=== PATIENT | female | born 1935 | race Caucasian/White ===

== ENCOUNTER → 2016-12-19 | Outpatient (CLI) | payer OTHER ==
[~2016-12-19] MED LIST: ALDACTONE25 MG PO; ASA5UEC PO; ASPIRIN325 PO; DUONEB 2.5-0.5 M3 ML INH; ENTOCORT EC 3 MG3 M1 PO; ENTOCORT EC3 MG PO; FLAGYL 250 MG250 MG PO; HYDROCODONE-AP1 EAC6 PO; LASIX 40 MG TAB40 M2 PO; LOPRESSOR25 PO; LOVASTAT20 PO; LOVASTAT40 PO; MULTIVITAMINS PO; ONDANSETRON HCL4 M2 PO; POTASSIUM20 PO; PREDNISONE 10 M10 MG; QUINAPRIL 20 MG20 MG PO; QUINU10 PD PO; ROBITUSSIN DM118 ML PO; TESSALON PERLE100 MG PO; TOPROL XL25 MG PO; TUMS E.S.750 MG PO; TYLENOL325 MG PO; VANCOMYCIN100 MG/M1 PO; multivitamin PO
== END ==
LOC: RAD 15:17
DX: Z12.31 Encounter for screening mammogram for malignant neoplasm of breast (principal)

== ENCOUNTER → 2018-02-05 | Outpatient (CLI) | payer OTHER | LOC: RAD 13:47 | DX: Z12.31 Encounter for screening mammogram for malignant neoplasm of breast (principal) ==

== ENCOUNTER → 2018-06-11 | Outpatient (CLI) | payer OTHER | LOC: NUC 14:51 | DX: M81.0 Age-related osteoporosis without current pathological fracture (principal); E28.39 Other primary ovarian failure; Z78.0 Asymptomatic menopausal state ==

== ENCOUNTER 2018-06-18 09:35 | Inpatient (IN) | payer OTHER ==
[~2018-06-18] VITALS: Ht 149.9 cm; Wt 41.5 kg
[~2018-06-18 09:35] MED LIST changes: -ALDACTONE25 MG PO; +SPIRONOLACTONE25 M1 PO
[2018-06-18 09:36] VITALS: BP 96/54
[2018-06-18] MEDS ORDERED: PULMICORT0.25 MG/3 INH (09:55)
[2018-06-18] MEDS ORDERED: CENTRUM SILVER1 EAC4 PO (09:55)
[2018-06-18] MEDS ORDERED: ZANTAC 150MG T150 MG PO (09:55)
[2018-06-18] MEDS ORDERED: SYNTHROID100 MC1 PO (09:56)
[2018-06-18] MEDS ORDERED: TUMS PO (09:56)
[2018-06-18 10:01] LABS: HEMATOCRIT 30.9 % (37.0-47.0); HEMOGLOBIN 10.4 gm/dL (12.0-15.0); MCH 32.6 pg (26.0-34.0); MCHC 33.7 g/dL (28.0-37.0); MCV 96.7 fL (80.0-100.0); PLATELET COUNT 187 thou/uL (150-400); RDW 14.5 % (10.5-14.5); WBC 27.1 thou/uL (4.0-11.0)
[2018-06-18 10:08] LABS: ANION GAP 9 mmol/L (7-16); BUN 28 mg/dL (7-18); CALCIUM 9.1 mg/dL (8.5-10.1); CHLORIDE 96 mmol/L (98-107); CO2 26 mmol/L (21-32); CREATININE 1.8 mg/dL (0.6-1.0); GLUCOSE 132 mg/dL (74-106); POTASSIUM 4.4 mmol/L (3.5-5.1); SODIUM 131 mmol/L (136-145)
[2018-06-18 10:16] LABS: TROPONIN-I <0.06 ng/mL (<0.06)
[2018-06-18 10:37] LABS: ABSOLUTE NEUTROPHILS 24.4 thou/uL (1.4-8.2)
[2018-06-18 10:42] LABS: ANISOCYTOSIS 1+; POLYCHROMASIA OCCASIONAL
[2018-06-18 12:13] LABS: URINE BILIRUBIN NEGATIVE (Negative); URINE BLOOD TRACE (Negative); URINE CLARITY CLEAR; URINE COLOR YELLOW; URINE GLUCOSE-RANDOM* NEGATIVE (Negative); URINE KETONES TRACE (Negative); URINE LEUKOCYTES-REFLEX 1+ (Negative); URINE NITRITE-REFLEX NEGATIVE (Negative); URINE PROTEIN (DIPSTICK) 1+ (Negative); URINE UROBILINOGEN 0.2 E.U./dl (0.2-1.0)
[2018-06-18 12:50] LABS: HYALINE CASTS 0-3 Few /LPF (None Seen)
[2018-06-18 12:51] LABS: SQUAMOUS 0-3 Few /LPF (0-3)
[2018-06-18 12:52] LABS: CRYSTALS None Seen /LPF (None Seen); URINE RBC None Seen /HPF (0-2); URINE WBC-REFLEX 6-15 Few /HPF (0-5)
[2018-06-18 12:53] LABS: BACTERIA-REFLEX >30 Many /HPF (None Seen)
[2018-06-18] MEDS ORDERED: ASPIR 8181 MG PO (13:22)
[2018-06-18] MEDS ORDERED: BUDESONIDE EC3 MG PO (13:26)
[2018-06-18] MEDS ORDERED: LEVOXYL50 MCG PO (13:27)
[2018-06-18 13:45] VITALS: BP 102/43
[2018-06-18 13:54] LABS: ALBUMIN 3.9 g/dL (3.4-5.0); TOTAL PROTEIN 7.4 g/dL (6.4-8.2)
[2018-06-18 14:20] LABS: TSH 0.401 uIU/mL (0.358-3.740)
--- NOTE | 2018-06-18 17:12 | EKG ---
[place] [address] [facility] 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: : 1935 Requested By: Roel Guillen Order Number: [id number] MD: Shaan Franco Measurements Intervals [place] Rate: 78 P: 80 [place]: 141 QRS: -11 QRSD: 88 T: 59 QT: 380 QTc: 433 Interpretive Statements Sinus rhythm Abnormal R-wave progression, early transition Compared to ECG 08/28/2014 12:19:08 Early R-wave progression is now present nonspecific change in the T wave abnormality Electronically Signed On 06-18-2018 17:12:14 CDT by Shaan Franco [email or web address] ��������������������������������������������� <ELECTRONICALLY SIGNED> ���������������������������������������� By: Shaan Franco MD, [facility] ��������������������������������������������� 06/18/18 1712 0948 0948 Shaan Franco MD, [facility] /EPI
[2018-06-18 17:53] VITALS: BP 112/47
[2018-06-18 18:39] VITALS: BP 102/48
[2018-06-18 20:00] VITALS: BP 104/53
[2018-06-19 02:52] VITALS: BP 94/52
--- NOTE | 2018-06-19 05:31 | NUR ---
PT RESTED GOOD AFTER TYLENOL WAS GIVEN, C/O UPPER CHEST DISCOMFORT FROM COUGH, ALERT/ORIENTED X4, ENC. COUGH, ON ROOM AIR, CONTINUE TO RECEIVE BREATHING TREATMENT, FLUIDS OFFERED WITH EACH ROUND, TOLERATING ORAL INTAKE, URINE STILL CONCENTRATED, VOIDED PER BSC, MINIMAL ASSIST OF 1, SCDS TO BLE, CTA ABDOMEN WAS DONE LAST NOC, NO RESULTS YET, HOURLY ROUNDING, NO BM PASSED, STILL ON SPECIAL CONTACT ISOLATION, MONITORED.
[2018-06-19 06:41] LABS: HEMATOCRIT 25.9 % (37.0-47.0); HEMOGLOBIN 8.6 gm/dL (12.0-15.0); MCH 32.7 pg (26.0-34.0); MCHC 33.2 g/dL (28.0-37.0); MCV 98.6 fL (80.0-100.0); RBC 2.62 mil/uL (4.20-5.00); WBC 17.5 thou/uL (4.0-11.0)
[2018-06-19 06:56] LABS: CREATININE 1.6 mg/dL (0.6-1.0); MAGNESIUM 2.1 mg/dL (1.8-2.4); POTASSIUM 4.2 mmol/L (3.5-5.1)
[2018-06-19 08:09] VITALS: BP 104/55
--- NOTE | 2018-06-19 14:24 | NUR ---
PT ADMITTED RELATED TO PYELONEPHRISIS, LEUKOCYTOSIS. CM REVIEWED CHART AND SPOKE WITH CARE TEAM. CM MET WITH PT AT BEDSIDE THIS DAY. PT IS A&O X4. CM ROLE INTRODUCED. PT INDICATED SHE LIVES IN A 4 BEDROOM APARTMENT WITH HER SON, DTR IN LAW, AND GRANDDAUGHTER. 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 PT INDICATED NO DME OR HH HX. PT INDICATED SHE PLANS TO RETURN HOME ONCE MEDICALLY STABLE. CM TO FOLLOW INDICATED WITH DC PLANNING.
[2018-06-19 14:39] VITALS: BP 96/55
--- NOTE | 2018-06-19 17:27 | NUR ---
PT A&OX4, VSS, NO C/O PAIN. PT STARTED ON IV ABX. PT HAS CHRONIC COUGH AND HAS COUGH MEDICATION. FALL PRECAUTIONS IN PLACE. PT TOLERATING DIET WITHOUT ISSUE. NO RIGHT SIDED PAIN OR PRESSURE TODAY, PT HAS NO C/O SOA AND NO SIGNS OF DISTRESS. WILL CONTINUE TO MONITOR.
[2018-06-19 18:18] VITALS: BP 118/57
[2018-06-19 20:10] VITALS: BP 119/60
[2018-06-20 04:23] VITALS: BP 98/52
[2018-06-20 06:01] LABS: HEMATOCRIT 24.4 % (37.0-47.0); HEMOGLOBIN 8.1 gm/dL (12.0-15.0); MCH 32.4 pg (26.0-34.0); MCHC 33.1 g/dL (28.0-37.0); RBC 2.49 mil/uL (4.20-5.00); RDW 15.2 % (10.5-14.5)
[2018-06-20 06:08] LABS: CALCIUM 7.9 mg/dL (8.5-10.1); CREATININE 1.1 mg/dL (0.6-1.0); MAGNESIUM 1.9 mg/dL (1.8-2.4); POTASSIUM 3.7 mmol/L (3.5-5.1)
[2018-06-20 07:26] VITALS: BP 108/66
[2018-06-20 20:30] VITALS: BP 106/50
[2018-06-21 03:26] VITALS: BP 117/49
[2018-06-21 04:57] LABS: HEMATOCRIT 22.8 % (37.0-47.0); HEMOGLOBIN 7.7 gm/dL (12.0-15.0); MCH 32.6 pg (26.0-34.0); MCHC 33.7 g/dL (28.0-37.0); MCV 96.9 fL (80.0-100.0); RBC 2.35 mil/uL (4.20-5.00); RDW 15.2 % (10.5-14.5); WBC 12.8 thou/uL (4.0-11.0)
[2018-06-21 05:09] LABS: CALCIUM 7.6 mg/dL (8.5-10.1); CREATININE 0.9 mg/dL (0.6-1.0); MAGNESIUM 1.8 mg/dL (1.8-2.4); POTASSIUM 3.8 mmol/L (3.5-5.1)
--- NOTE | 2018-06-21 07:07 | NUR ---
Assumed care at 1845. Pt resting in bed. Still having an unproductive cough. On 2L NC. She was hypoxic and tachy while walking to the bathroom. A0X4. VSS. No identified needs at the moment. Will continue to monitor.
[2018-06-21 07:40] VITALS: BP 113/57
--- NOTE | 2018-06-21 14:52 | NUR ---
CARE TEAM INDICATED THAT PT WILL LIKELY BE MEDICALLY STABLE TO DISCHARGE HOME TOMORROW. CM SENT REFERRAL TO [facility] AND THEY ARE ABLE TO ACCEPT PT FOR HOME HEALTH PT, OT, AND NURSING UPON DC. NO OTHER CM INTERVETNION INDICATED AT THIS TIME.
[2018-06-21 14:54] VITALS: BP 113/57
[2018-06-21 15:05] VITALS: BP 113/57
[2018-06-21 15:45] VITALS: BP 124/58
--- NOTE | 2018-06-21 19:36 | NUR ---
ASSUMED CARE 0700. ALERT X4, DENIES PAIN. VSS. PT VOICED CONCERN OF DC HOME WITH HOME HEALTH AND NOT BEING ABLE TO ANSWER THE DOOR AND MAKE HER MEALS WHILE HER SON AND HIS ARE AT WORK. PT AND FAMILY WANT PT TO GO TO REHAB. FALL PRECAUTIONS IN PLACE. USES CALL LIGHT.
[2018-06-21 20:18] VITALS: BP 127/71
[2018-06-22 03:55] VITALS: BP 115/79
--- NOTE | 2018-06-22 04:51 | NUR ---
PATIENT AOX4 MAKES NEEDS KNOWN. PATIENT NEEDS MINIMAL ASSISTANCE WITH ADL, BED MOBILITY, TRANSFER AND TOILETING.PATIENT HAD SHORTNESS OF AIR, LUNGS HAD CRACKLES AND WHEEZING. CALLED OPTICAL MANAGER NEW ORDER TO D/C FLUIDS. PAIN CONTROLLED THIS SHIFT. PATIENT IS SHORT OF AIR WITH ACTIVITIES. FALL PRECAUTION IN PLACE. PATIENT IN BED ASLEEP AT THIS TIME BREATHING REGULAR AND UNLABOURED.
[2018-06-22 05:15] LABS: HEMATOCRIT 26.4 % (37.0-47.0); HEMOGLOBIN 8.8 gm/dL (12.0-15.0); MCH 32.6 pg (26.0-34.0); MCHC 33.2 g/dL (28.0-37.0); MCV 98.3 fL (80.0-100.0); RBC 2.68 mil/uL (4.20-5.00); RDW 15.4 % (10.5-14.5); WBC 9.9 thou/uL (4.0-11.0)
[2018-06-22 05:29] LABS: CALCIUM 8.2 mg/dL (8.5-10.1); CREATININE 0.9 mg/dL (0.6-1.0); POTASSIUM 3.5 mmol/L (3.5-5.1)
[2018-06-22 07:38] VITALS: BP 139/74
--- NOTE | 2018-06-22 17:24 | NUR ---
ASSUMED CARE 0700. DR CRAFT ROUNDED WHILE FAMILY WAS BEDSIDE AND DISCUSSED REHAB VERSES HOME HEALTH. NO PLANS TO DC HOME THIS WEEKEND. MIN ASSIST TO BATHROOM. FALL PRECAUTIONS IN PLACE. ABLE TO MAKE NEEDS KNOWN.
[2018-06-22 17:39] VITALS: BP 132/71
[2018-06-22 19:31] VITALS: BP 125/59
[2018-06-22 19:36] VITALS: BP 122/57
[2018-06-23 05:44] VITALS: BP 137/73
[2018-06-23 07:28] VITALS: BP 135/73
--- NOTE | 2018-06-23 07:43 | NUR ---
PATIENT SLEPT PART OF THE NIGHT. 2L O2 VIA NC CONTINUED. PATIENT AMULATES WELL WITH WALKER AND SB ASSIST. PATIENT NID NOT REPORT ANY PAIN. NO NEW SKIN ISSUS DURING THE SHIFT. PATIENT SAYS SHE FEELS "BETTER". PATIENT IS PROGRESSING TOWARDS DISCHARGE GOALS.
--- NOTE | 2018-06-23 11:37 | NUR ---
TOWARDS POC PT A/O X4, VSS, AFEBRILE, DENIES PAIN. SOA ON EXERTION, REMAINED ON 2L O2. NO CONCERNS VOICED AT THIS TIME, WILL CONTINUE TO MONITOR.
[2018-06-23 16:19] VITALS: BP 141/69
[2018-06-23 20:09] VITALS: BP 148/83
[2018-06-24 03:26] LABS: MCH 32.7 pg (26.0-34.0); MCHC 33.4 g/dL (28.0-37.0); MCV 97.9 fL (80.0-100.0); RBC 2.46 mil/uL (4.20-5.00); RDW 15.1 % (10.5-14.5); WBC 9.4 thou/uL (4.0-11.0)
[2018-06-24 03:38] VITALS: BP 135/78
[2018-06-24 03:42] LABS: CALCIUM 8.8 mg/dL (8.5-10.1); CREATININE 0.9 mg/dL (0.6-1.0); POTASSIUM 3.3 mmol/L (3.5-5.1)
--- NOTE | 2018-06-24 06:21 | NUR ---
PATIENT SLEPT PART OF THE NIGHT. AO X 4 AND CALLS APPROPIATELY NEEDED. FALL PRECAUTION IN PLACE. PATIENT STILL ON O2 2L NC. NO PAIN MEDS REQUESTED THIS SHIFT. PATIENT IS PROGRESSING TOWARDS DISCHARGE GOALS. POSSIBLE DISCHARGE TO REHAB/HOME THIS AM.
[2018-06-24 08:22] VITALS: BP 135/63
--- NOTE | 2018-06-24 10:44 | NUR ---
digital media planner faxed initial Skilled Referral to [facility],- patient likely to discharge today. Requested they please seek authorization. DP contacted Gwen at facility, they received and will seek auth. -Case Management to follow up. BOP fax [phone].
[2018-06-24] MEDS ORDERED: IPRAT-ALBUT 0.5-3 ML INH (15:18)
[2018-06-24] MEDS ORDERED: TYLENOL325 MG PO (15:19)
[2018-06-24] MEDS ORDERED: ASA5UEC PO (15:19)
[2018-06-24] MEDS ORDERED: MUCINEX600 MG PO (15:20)
[2018-06-24] MEDS ORDERED: PROBIOTIC1 EAC1 PO (15:21)
[2018-06-24] MEDS ORDERED: KEFLEX500 M1 PO (15:21)
--- NOTE | 2018-06-24 15:27 | NUR ---
INDICATED THAT SHE DIDN'T FEEL SAFE RETURNING HOME. CM SENT REFERRAL TO [facility] FOR REVIEW FOR POSSIBLE POST ACUTE CARE STAY. THEY ARE ABLE TO ACCEPT PT AND AUTH WAS RECIEVED THROUGH HER INSURANCE. PT IS TO DISCHARGE TO [facility] THIS AFTERNNON AT 1630 VIA WC VAN 2L O2. CHART COPY ORDERED. ORDERS TO BE FAXED ONCE COMPLETED. REPORT TO BE CALLED TO . PT AND DTR ARE AWARE AND AGREEABLE. NO OTHER CM INTERVENTION INDICATED AT THIS TIME. CASE CLOSED.
[2018-06-24] MEDS ORDERED: TESSALON PERLE100 MG PO (15:29)
[2018-06-24 15:49] VITALS: BP 135/63
--- NOTE | 2018-06-24 18:29 | NUR ---
PT STABLE THROUGHOUT SHIFT. PT DISCHARGED TO [facility]. REPORT CALLED TO AYSE. PT LEFT VIA WHEELCHAIR VAN.
== END 2018-06-24 18:31 | DRG 871 ==
LOC: ER 09:35 → 4W 13:03 → EROBS 13:03 → 4W 17:50
PROVIDERS: Emergency Medicine; Hospitalist; ADMIT Internal Medicine
DX: A41.9 Sepsis, unspecified organism (principal); E43 Unspecified severe protein-calorie malnutrition; N17.9 Acute kidney failure, unspecified; J44.1 Chronic obstructive pulmonary disease with (acute) exacerbation; N12 Tubulo-interstitial nephritis, not specified as acute or chronic; E87.1 Hypo-osmolality and hyponatremia; J44.0 Chronic obstructive pulmonary disease with (acute) lower respiratory infection; Z68.1 Body mass index [BMI] 19.9 or less, adult; R19.7 Diarrhea, unspecified; E86.0 Dehydration; M81.0 Age-related osteoporosis without current pathological fracture; M19.90 Unspecified osteoarthritis, unspecified site; E78.00 Pure hypercholesterolemia, unspecified; Z96.641 Presence of right artificial hip joint; J20.9 Acute bronchitis, unspecified; H91.90 Unspecified hearing loss, unspecified ear; M62.84 Sarcopenia; D64.9 Anemia, unspecified; B96.20 Unspecified Escherichia coli [E. coli] as the cause of diseases classified elsewhere; E87.6 Hypokalemia; I25.10 Atherosclerotic heart disease of native coronary artery without angina pectoris; E03.9 Hypothyroidism, unspecified; F41.0 Panic disorder [episodic paroxysmal anxiety]; F17.210 Nicotine dependence, cigarettes, uncomplicated; I25.2 Old myocardial infarction; Z95.5 Presence of coronary angioplasty implant and graft; Z90.710 Acquired absence of both cervix and uterus; Z90.722 Acquired absence of ovaries, bilateral; Z90.49 Acquired absence of other specified parts of digestive tract; Z79.82 Long term (current) use of aspirin; Z79.899 Other long term (current) drug therapy; Z88.8 Allergy status to other drugs, medicaments and biological substances; Z28.21 Immunization not carried out because of patient refusal
CPT/HCPCS: 10040; 10045

== ENCOUNTER → 2020-02-18 | Outpatient (CLI) | payer OTHER ==
[~2020-02-18] MED LIST changes: +ASPIR 8181 MG PO; +BUDESONIDE EC3 MG PO; +CENTRUM SILVER1 EAC4 PO; +IPRAT-ALBUT 0.5-3 ML INH; +KEFLEX500 M1 PO; +LEVOXYL50 MCG PO; +MUCINEX600 MG PO; +PROBIOTIC1 EAC1 PO; +PULMICORT0.25 MG/3 INH; +SYNTHROID100 MC1 PO; +TUMS PO; +ZANTAC 150MG T150 MG PO
== END ==
LOC: SJCVCIMAG 09:07
PROVIDERS: ATTEND Internal Medicine Cardiovascular Disease
DX: I70.201 Unspecified atherosclerosis of native arteries of extremities, right leg (principal); I25.10 Atherosclerotic heart disease of native coronary artery without angina pectoris; I77.9 Disorder of arteries and arterioles, unspecified; I10 Essential (primary) hypertension; E78.00 Pure hypercholesterolemia, unspecified; J44.9 Chronic obstructive pulmonary disease, unspecified; R68.89 Other general symptoms and signs; Z72.0 Tobacco use; Z79.82 Long term (current) use of aspirin; Z79.899 Other long term (current) drug therapy

== ENCOUNTER → 2020-05-07 | Outpatient (CLI) | payer OTHER ==
[~2020-05-07] VITALS: Ht 152.4 cm; Wt 47.6 kg
[~2020-05-07] MED LIST changes: +ASA81BEC PO; +CALCIUM500 MG PO; +OMEPRAZOLE 20 M20 M1 PO
[2020-05-07 11:18] VITALS: BP 139/68
[2020-05-07 11:37] LABS: HEMATOCRIT 35.6 % (37.0-47.0); HEMOGLOBIN 11.9 gm/dL (12.0-15.0); MCHC 33.3 g/dL (28.0-37.0); RBC 3.6 mil/uL (4.20-5.00); RDW 14.7 % (10.5-14.5); WBC 13.4 thou/uL (4.0-11.0)
== END ==
LOC: MRI 05-05 11:33 → CATH 09:15
PROVIDERS: ATTEND Nuclear Medicine Nuclear Cardiology
DX: M80.08XA Age-related osteoporosis with current pathological fracture, vertebra(e), initial encounter for fracture (principal); M51.37 Other intervertebral disc degeneration, lumbosacral region; M19.90 Unspecified osteoarthritis, unspecified site; E78.00 Pure hypercholesterolemia, unspecified; F41.0 Panic disorder [episodic paroxysmal anxiety]; I25.10 Atherosclerotic heart disease of native coronary artery without angina pectoris; J44.9 Chronic obstructive pulmonary disease, unspecified; F17.210 Nicotine dependence, cigarettes, uncomplicated; D64.9 Anemia, unspecified; E03.9 Hypothyroidism, unspecified; Z95.5 Presence of coronary angioplasty implant and graft; Z90.710 Acquired absence of both cervix and uterus; Z90.49 Acquired absence of other specified parts of digestive tract; F32.9 Major depressive disorder, single episode, unspecified; Z91.013 Allergy to seafood; Z91.018 Allergy to other foods; I10 Essential (primary) hypertension; I73.9 Peripheral vascular disease, unspecified; M54.5 Low back pain

== ENCOUNTER 2020-05-12 10:47 | Observation (INO) | payer OTHER ==
[~2020-05-12] VITALS: Ht 152.4 cm; Wt 47.3 kg
[~2020-05-12 10:47] MED LIST changes: -ASA81BEC PO; -CALCIUM500 MG PO; -HYDROCODON-ACE1 EAC7 PO; -OMEPRAZOLE 20 M20 M1 PO
[2020-05-12 10:54] VITALS: BP 129/72
[2020-05-12 12:07] LABS: ABSOLUTE NEUTROPHILS 10.1 thou/uL (1.4-8.2); BASOPHILS 0.3 % (0.0-2.0); EOSINOPHILS 0.4 % (0.0-3.0); HEMATOCRIT 32.9 % (37.0-47.0); HEMOGLOBIN 10.9 gm/dL (12.0-15.0); LYMPHOCYTES 5.7 % (24.0-44.0); MCH 33.1 pg (26.0-34.0); MCV 100.2 fL (80.0-100.0); MONOCYTES 7.3 % (1.0-8.0); PLATELET COUNT 226 thou/uL (150-400); POLYS 86.3 % (36.0-66.0); RBC 3.28 mil/uL (4.20-5.00); RDW 15.5 % (10.5-14.5); WBC 11.7 thou/uL (4.0-11.0)
[2020-05-12 12:14] LABS: CALCIUM 9.2 mg/dL (8.5-10.1); CREATININE 1.2 mg/dL (0.6-1.0); POTASSIUM 3.8 mmol/L (3.5-5.1)
[2020-05-12 12:20] LABS: ALBUMIN 3.6 g/dL (3.4-5.0); TOTAL BILIRUBIN 0.6 mg/dL (0.2-1.0); TOTAL PROTEIN 7.6 g/dL (6.4-8.2)
[2020-05-12] MEDS ORDERED: ASA81BEC PO (12:45)
[2020-05-12] MEDS ORDERED: CALCIUM500 MG PO (12:51)
[2020-05-12] MEDS ORDERED: OMEPRAZOLE 20 M20 M1 PO (12:51)
[2020-05-12 13:05] LABS: URINE BILIRUBIN NEGATIVE (Negative); URINE BLOOD NEGATIVE (Negative); URINE CLARITY CLEAR; URINE COLOR YELLOW; URINE GLUCOSE-RANDOM* NEGATIVE (Negative); URINE KETONES NEGATIVE (Negative); URINE LEUKOCYTES-REFLEX NEGATIVE (Negative); URINE NITRITE-REFLEX NEGATIVE (Negative); URINE PROTEIN (DIPSTICK) NEGATIVE (Negative); URINE UROBILINOGEN 0.2 E.U./dl (0.2-1.0)
[2020-05-12 16:49] LABS: PROTIME 10.6 Seconds (9.3-11.4)
[2020-05-12 18:08] LABS: HEMATOCRIT 33.7 % (37.0-47.0); MCH 32.6 pg (26.0-34.0); MCHC 32.6 g/dL (28.0-37.0); MCV 100.1 fL (80.0-100.0); RBC 3.37 mil/uL (4.20-5.00); RDW 15.4 % (10.5-14.5); WBC 12.6 thou/uL (4.0-11.0)
[2020-05-12 20:29] VITALS: BP 138/60
[2020-05-12 20:57] VITALS: BP 138/60
[2020-05-12 21:00] VITALS: BP 149/79
[2020-05-13 04:05] VITALS: BP 114/66
[2020-05-13 07:10] VITALS: BP 125/76
--- NOTE | 2020-05-13 08:04 | NUR ---
PT IS A&OX4. PT IS HERE DUE TO BACK PAIN AFTER A KYPHOPLASTY ON 05/07/20. . PT IS ABLE TO MAKE HER NEEDS KNOWN. LOOKING INTO REHAB PLACEMENT TO FIX ISSUE. PT'S O2 DESATS WHEN SHE SLEEPS. PT MAY HAVE A MRI THIS MORNING. WILL CONTINUE TO MONITOR. GAVE REPORT TO DAY NURSE.
--- NOTE | 2020-05-13 10:12 | NUR ---
ASSESSMENT: CM REVIEWED CHART AND SPOKE WITH PATIENT. PT WAS ADMITTED DUE TO HAVING PAIN/LUMBAR RADICULOPATHY. PT HAD A KYPHOPLASTY ABOUT 5 DAYS AGO AND REPORTS PAIN SINCE. PT [facility] WITH HER SON, DAUGHTER IN LAW, AND GRANDDAUGHTER. SHE REPORTS SHE HAS ABOUT 14 STEPS TO GET TO HER BEDROOM. PT STATES STARTING MAY 24, THEY ARE MOVING TO A DIFFERENT APT. PT HAS BEEN TO [facility] IN THE PAST. PT IS TO WORK WITH THERAPIES. PT STATING IF SHE IS NEEDING POST ACUTE CARE SHE WISHES TO GO TO [facility]. CM WILL CONTINUE TO FOLLOW AND AWAIT THERAPY RECOMMENDATIONS.
--- NOTE | 2020-05-13 12:20 | NUR ---
ASSUMED PT CARE THIS AM. PT VSS, A&OX4. PT PLEASANT, MAKES NEEDS KNOWN. IV PATENT, SALINE LOCKED. PT HARD OF HEARING. PT CONTINENT, USING THE BEDSIDE COMMODE AND BEDPAN S NEEDED. ON 2L O2 NC. COMPLAINTS OF PAIN WITH MOVEMENT, BUT WITH MINIMAL PAIN AT BASELINE. FALL PRECAUTIONS IN PLACE.
--- NOTE | 2020-05-13 13:16 | NUR ---
ON-GOING ASSESSMENT: PT/OT EVALS ARE PENDING BUT PT WILL LIKELY NEED POST ACUTE. PT IS OPEN TO 5N AND CONSULT IS PLACED AND PENDING. PT ALSO INTERESTED IN GOING TO [facility] SHE HAS BEEN THERE IN THE PAST. CM NOTIFIED BEDSIDE RN THAT A COVID TEST NEEDS TO BE COMPLETED. AWAITING 5N EVAL WELL PT/OT RECOMMENDATIONS AT THIS TIME. CM UPDATED PTS SON.
[2020-05-13 16:00] VITALS: BP 157/82
[2020-05-13 19:42] VITALS: BP 127/61
[2020-05-14 04:24] VITALS: BP 145/79
--- NOTE | 2020-05-14 07:23 | NUR ---
ASSUMED CARE OF PATIENT SHE IS RESTING COMFORTABLY IN BED. NO PAIN OR RESP DISTRESS.
--- NOTE | 2020-05-14 07:27 | NUR ---
ASSUMED PT CARE AT 1900.PT C/O PAIN ON HER BACK,MANAGED WITH MED.PT VERY [place].PT ON 0.5L/NC.PT ABLE TO MAKE HER NEEDS KNOWN.CALL LIGHT WITHIN REACH.REPORT TO AM NURSE.
[2020-05-14 08:01] VITALS: BP 140/77
--- NOTE | 2020-05-14 09:42 | NUR ---
ON-GOING ASSESSMENT: EMILY REVIEWED CHART AND SPOKE WITH ATTENDING. EMILY ENT UPDATED CLINICAL TO [facility] THIS AM AND ASKED THAT THEY REQUEST AUTH IF THEY HAVE NO ALREADY. CM ALSO FAXED NEGATIVE COVID TEST. EMILY SPOKE WITH PTS DAUGHTER IN LAW OLGA TO UPDATE. AWAITING INSURANCE AUTH FOR SNF AT THIS TIME.
[2020-05-14] MEDS ORDERED: HYDROCODON-ACE1 EAC7 PO (10:43)
--- NOTE | 2020-05-14 12:54 | NUR ---
ON-GOING ASSESSMENT: CM REVIEWED CHART AND SPOKE WITH ATTENDING. PT HAS ORDERS TO DISCHARGE TO SNF TODAY. CM NOTIFIED LIASON AT [facility] AND LATER RECEIVED A CALL THAT THEY HAVE INSURANCE AUTH AND CAN ACCEPT HER TODAY. CM FAXED D/C ORDERS AND SUMMARY TO [facility] AND THEY CONFIRMED THEY RECEIVED IT. CM ALSO FAXED NEGATIVE COVID RESULT. CM NOTIFIED PT AND HER DAUGHTER IN LAW OLGA WHO IS Agreeable WITH PLAN. CHART COPY ORDERED. BEDSIDE RN HAS THE CONTACT NUMBER FOR REPORT. PT REPORTS NO FURTHER QUETIONS FROM CM AT THIS TIME.
[2020-05-14 14:35] VITALS: BP 123/78
--- NOTE | 2020-05-14 16:19 | NUR ---
PATIENT DISCHARGED AT 1410. W/C VAN HERE TO TRANSPORT PATIENT SHE TOOK 1 SET OF CLOTHES SHE WAS WEARING AND HER GLASSES. PAPERWORK SENT WITH PATIENT. PT W/O PAIN OR RESP DISTRESS AT DISCHARGE.
== END 2020-05-14 16:49 ==
LOC: ER 10:47 → EROBS 14:09 → 4S 14:09
PROVIDERS: Nurse Practitioner Family; ADMIT Hospitalist; ATTEND Hospitalist
DX: M40.205 Unspecified kyphosis, thoracolumbar region (principal); K21.9 Gastro-esophageal reflux disease without esophagitis; I10 Essential (primary) hypertension; F32.9 Major depressive disorder, single episode, unspecified; J44.9 Chronic obstructive pulmonary disease, unspecified; M81.0 Age-related osteoporosis without current pathological fracture; I25.10 Atherosclerotic heart disease of native coronary artery without angina pectoris; E78.00 Pure hypercholesterolemia, unspecified; F41.0 Panic disorder [episodic paroxysmal anxiety]; E03.9 Hypothyroidism, unspecified; I73.9 Peripheral vascular disease, unspecified; N17.9 Acute kidney failure, unspecified; D72.829 Elevated white blood cell count, unspecified; H91.90 Unspecified hearing loss, unspecified ear; K59.00 Constipation, unspecified; R53.81 Other malaise; R62.7 Adult failure to thrive; Z20.822 Contact with and (suspected) exposure to COVID-19; Z98.890 Other specified postprocedural states; Z90.49 Acquired absence of other specified parts of digestive tract; Z90.710 Acquired absence of both cervix and uterus; Z95.5 Presence of coronary angioplasty implant and graft

== ENCOUNTER → 2020-05-12 | Outpatient (CLI) | payer OTHER ==
[~2020-05-12] MED LIST changes: +HYDROCODON-ACE1 EAC7 PO
== END ==
LOC: CATH 06:27 → RAD 08:24 → CATH 08:24
PROVIDERS: ATTEND Nuclear Medicine Nuclear Cardiology
DX: M47.816 Spondylosis without myelopathy or radiculopathy, lumbar region (principal); M54.5 Low back pain

== ENCOUNTER → 2020-10-15 | Outpatient (CLI) | payer OTHER ==
[~2020-10-15] MED LIST changes: +ASA81BEC PO; +CALCIUM500 MG PO; +HYDROCODON-ACE1 EAC7 PO; +OMEPRAZOLE 20 M20 M1 PO
== END ==
LOC: SJCVC 10:36
PROVIDERS: ATTEND Internal Medicine Cardiovascular Disease
DX: I25.10 Atherosclerotic heart disease of native coronary artery without angina pectoris (principal); I73.9 Peripheral vascular disease, unspecified; I77.9 Disorder of arteries and arterioles, unspecified; I10 Essential (primary) hypertension; E78.00 Pure hypercholesterolemia, unspecified; J44.9 Chronic obstructive pulmonary disease, unspecified; R06.00 Dyspnea, unspecified; F32.9 Major depressive disorder, single episode, unspecified; M81.0 Age-related osteoporosis without current pathological fracture; Z79.82 Long term (current) use of aspirin; Z79.899 Other long term (current) drug therapy; Z87.891 Personal history of nicotine dependence

== ENCOUNTER 2021-02-26 12:12 | Inpatient (IN) | payer OTHER ==
[~2021-02-26] VITALS: Ht 152.4 cm; Wt 52.6 kg
[2021-02-26 12:39] VITALS: BP 131/68
[2021-02-26 13:22] LABS: BASOPHILS 0.3 % (0.0-2.0); HEMATOCRIT 32.4 % (37.0-47.0); HEMOGLOBIN 10.6 gm/dL (12.0-15.0); LYMPHOCYTES 2.8 % (24.0-44.0); MCH 32.5 pg (26.0-34.0); MCHC 32.7 g/dL (28.0-37.0); MCV 99.3 fL (80.0-100.0); MONOCYTES 9.6 % (1.0-8.0); PLATELET COUNT 147 thou/uL (150-400); POLYS 87.3 % (36.0-66.0); RBC 3.26 mil/uL (4.20-5.00); RDW 15.4 % (10.5-14.5); WBC 14.9 thou/uL (4.0-11.0)
[2021-02-26 13:37] LABS: CALCIUM 8.6 mg/dL (8.5-10.1); CREATININE 1.9 mg/dL (0.6-1.0); POTASSIUM 4.5 mmol/L (3.5-5.1)
[2021-02-26 13:47] LABS: ALBUMIN 3.7 g/dL (3.4-5.0); TOTAL BILIRUBIN 0.8 mg/dL (0.2-1.0); TOTAL PROTEIN 7.4 g/dL (6.4-8.2)
[2021-02-26 16:26] VITALS: BP 139/59
[2021-02-26 17:29] VITALS: BP 117/92
--- NOTE | 2021-02-26 18:32 | NUR ---
[facility]. A/O X4. ON 4L/NC. COUGH, SOB WITH EXERTION. DEMIES PAIN. WILL KEEP MONITOR.
[2021-02-26 20:32] VITALS: BP 99/47
[2021-02-26 23:44] VITALS: BP 104/54
[2021-02-27 02:14] LABS: CALCIUM 7.3 mg/dL (8.5-10.1); CREATININE 1.8 mg/dL (0.6-1.0); POTASSIUM 4.5 mmol/L (3.5-5.1)
[2021-02-27 03:40] VITALS: BP 110/56
[2021-02-27 05:21] LABS: HEMATOCRIT 25.2 % (37.0-47.0); MCH 33.5 pg (26.0-34.0); MCV 101.6 fL (80.0-100.0); RBC 2.48 mil/uL (4.20-5.00); RDW 15.9 % (10.5-14.5)
[2021-02-27 05:32] LABS: HEMOGLOBIN 8.3 gm/dL (12.0-15.0)
[2021-02-27 07:34] VITALS: BP 111/56
--- NOTE | 2021-02-27 07:34 | NUR ---
Patient making slow progress towards outcome goals. Vital signs and rhythm stable. Lactic acid elevated, reported with orders for fluid bolus. Up to BSC x 1. High fall risks, fall precautions in place. Uses call light appropriately for needs. IVfluids infusing. Short of breath with activity, oxygen saturation optimal with 4L/NC. Loose cough, Flu swab negative. Very [place] despite hearing aids.
[2021-02-27 11:20] LABS: HEMATOCRIT 23.1 % (37.0-47.0); HEMOGLOBIN 7.5 gm/dL (12.0-15.0)
--- NOTE | 2021-02-27 12:03 | EKG ---
[address] [address] ELECTROCARDIOGRAM REPORT Name: MAITE ALVAREZ GORDY Room #: 360-P ADM IN M.R.#: [id number] Admission: 02/26/21 Attend Phys: Bradley Pisano MD Discharge: Date of : 34 Report #: [id number] [facility] ED Test Date: 2021-02-26 Test Time: 12:41:05 Pat Name: MAITE ALVAREZ Department: Room: 360 Gender: F Product Responsibility Liaison: RENEA : 1935 Requested By: Judy Whyte Order Number: [id number] MD: Bebo Onofre Measurements Intervals [place] Rate: 126 P: 81 CA: 159 QRS: -34 QRSD: 77 T: 47 QT: 294 QTc: 426 Interpretive Statements Sinus tachycardia Probable left atrial enlargement Left axis deviation Electronically Signed On 02-27-2021 12:03:32 FAMILY CASEWORKER by Bebo Onofre [email or web address] <ELECTRONICALLY SIGNED> By: Bebo Onofre MD 02/27/21 1203 1241 1241 Bebo Onofre MD /YADI
[2021-02-27 16:22] VITALS: BP 126/59
--- NOTE | 2021-02-27 18:10 | NUR ---
A/O X4. DESAT WITH COUGH. ON 4L/NC. UP WITH STAND BY ASSIST. VSS. SLOWLY TOWARDS POC GOALS.
[2021-02-27 19:42] VITALS: BP 129/71
[2021-02-27 20:13] LABS: % SATURATION 8 % (20-39); IRON 22 ug/dL (50-170); TIBC 291 ug/dL (250-450)
[2021-02-27 21:36] LABS: FOLIC ACID 60.2 ng/mL (8.6-58.9)
[2021-02-28 03:32] VITALS: BP 144/73
--- NOTE | 2021-02-28 05:54 | NUR ---
Patient making slow progress towards outcome goals.Oxygenation optimal with 4L/NC. Several coughing fits, productive thick yellow. Orders received for cough with some relief. Stress incontinence from coughing. High fall risks,fall precautions in place. Calls out appropriately for needs, [place] even with hearing aides on. IVfluids infusing. Tachycardic up to 140's with coughing fits, Afebrile. BP stable.
[2021-02-28 07:53] VITALS: BP 128/64
[2021-02-28 09:06] LABS: HEMOGLOBIN 7.9 gm/dL (12.0-15.0); MCH 33.2 pg (26.0-34.0); MCV 100.6 fL (80.0-100.0); RBC 2.38 mil/uL (4.20-5.00); WBC 14.2 thou/uL (4.0-11.0)
[2021-02-28 09:48] LABS: CALCIUM 7.6 mg/dL (8.5-10.1); CREATININE 1.5 mg/dL (0.6-1.0); POTASSIUM 3.9 mmol/L (3.5-5.1)
[2021-02-28 09:58] LABS: ABSOLUTE NEUTROPHILS 11.5 thou/uL (1.4-8.2); PLATELET COUNT 127 thou/uL (150-400); PLATELET ESTIMATE NORMAL
--- NOTE | 2021-02-28 14:55 | NUR ---
INITIAL ASSESSMENT: LEYLA reviewed chart and spoke with nursing and attending physician. Pt was admitted from home due to acute respiratory failure. Pt with hx of pneumonia and compression fractures. Pt is on IV abx/IV steroids. Pt is on 4L of O2. PT/OT evals completed today. LEYLA met with pt at bedside. Introduced role of SW. Pt is alert/orientated x 4. Pt is [place]. Pt states she lives at home with her son and dtr-in-law. Pt has a cane and walker to use as needed. Pt is not on home O2. Pt's PCP is Dr. Morelos. Pt states she has been to [facility] in the past. No hx of HH services. Pt asked SW to contact her dtr-in-law, Stu, to discuss discharge plan. LEYLA spoke with Stu via phone. Update provided. Stu states that pt and family are agreeable with referral to [facility], as pt prefers to do a short term rehab stay v. having HH come in to see her at home. LEYLA faxed SNF referral to [facility] for review. Notified [place] liaison of new referral. Will need insurance authorization. LEYLA is following to assist as needed with discharge planning.
--- NOTE | 2021-02-28 19:36 | NUR ---
PATIENT IS ALERT AND ORIENTED X3 THIS SHIFT. SHE IS HARD OF HEARING BUT IS AWARE OF HER LIMITATIONS. PATIENT HAS EXHILATORY WHEEZES. PATIENT IS MED- SURGE TELE AND HAS BEEN RUNNING SINUS TACH. PATIENT HAS BEEN INCONTINENT ONE TIME THIS SHIFT. PATIENT GETS UP WITH ONE ASSIST TO THE BEDSIDE COMMODE. SHE IS VERY WEAK AND SHAKY. PATIENTS LAST BM WAS 02/28/21. PATIENT HAS AN IV IN HER RIGHT A.C. THAT IS SALINE LOCKED AND IT IS PATENT. PATIENT WILL CONTINUE TO BE MONITORED.
[2021-02-28 20:07] VITALS: BP 151/74
[2021-03-01 04:51] VITALS: BP 138/63
[2021-03-01 07:31] VITALS: BP 131/67
--- NOTE | 2021-03-01 08:28 | NUR ---
Pt. requested for cough med and given to her. Scheduled sleep med also given. She stated she slept better last night with less coughing. Up with assist to commode. O2 at 4L/NC ,she does get short of breath with exertion. Making some progress towards care plan goals.
--- NOTE | 2021-03-01 15:41 | NUR ---
LEYLA reviewed chart anbd spoke with nursing and attending physician. Pt is progressing towards goals for discharge. Pulonology consulted yesterday. Pt is on 2L of O2, IV steroids and IV abx. Pt had COVID PCR test yesterday, which was negative. [facility] can accept pt pending insurance authorization. Discharge anticipated for /Sunday. LEYLA faxed clinical and therapy updates to [facility] for review. Notified [facility] liaison and requested facility to submit for insurance auth. LEYLA met with pt at bedside to provide update. Pt is agreeable with plan. Pt states she received the Moderna COVID vaccine. LEYLA spoke with pt's dtr-in-law, Stu, via phone to provide update and notify of [facility] acceptance and discharge timeframe. Stu is agreeable with plan. Family to bring pt's COVID vaccination card to the hospital. LEYLA is following to assist as needed with discharge planning.
[2021-03-01 16:20] VITALS: BP 123/60
--- NOTE | 2021-03-01 16:35 | NUR ---
PATIENT IS ALERT AND ORIENTED X3. SHE IS HARD OF HEARING. PAITNET HAS DIMINISHED BREATH SOUNDS. SHE IS ON 1L OF OXYGEN BUT WAS INCREASED TO TWO LITERS OF OXYGEN POST ACTIVITY WITH PHYSICAL ACTIVITY. PATIENT WAS DECREASED BACK TO ONE LITER OF OXYGEN. PATIENT IS MED/SURGE- TELE AND HAS BEEN SINUS RHYTHM THIS SHIFT. PAITNET HAS BEEN UP TO THE BED SIDE COMMODE WITH ONE ASSIST THIS SHIFT. PATIENT HAS HAD ONE EPISODE OF INCONTINENCE. PATIENT HAS A MEDIUM SIZED BM THIS SHIFT. PATIENT HAS NO SKIN ISSUES. PATIENT HAS AN IV IN HER RIGHT AC THAT IS CURRENTLY BEING UTILIZED TO RUN HER ANTIBIOTICS. PATIENT WILL CONTINUE TO BE MONITORED.
[2021-03-01 19:59] VITALS: BP 123/61
[2021-03-02 04:53] VITALS: BP 140/73
--- NOTE | 2021-03-02 05:00 | NUR ---
Slept well during the night. Cough medicine given x1. O2 at 1 L/NC and maintaining O2 sat > 90%. Up with assist to commode. Calls appropriately for assistance. Making some progress towards care plan goals.
[2021-03-02 07:41] VITALS: BP 139/69
--- NOTE | 2021-03-02 09:11 | 2DMMODE ---
[facility] [place] [address] 2 D/M-MODE ECHOCARDIOGRAM Name: MAITE ALVAREZ GORDY Room #: 360-P ADM IN M.R.#: [id number] Admission: 02/26/21 Attend Phys: Bradley Pisano MD Discharge: Date of : 34 Report #: [id number] THIS REPORT FOR: cc: Veto Morelos,Trevor Urrutia MD ~ APPROVED REPORT Study performed: 03/02/2021 07:33:16 EXAM: Comprehensive 2D, Doppler, and color-flow Echocardiogram Patient Location: Bedside Room #: 360 Status: routine BSA: 1.48 HR: 82 bpm BP: 140/73 mmHg Rhythm: NSR Other Information Study Quality: Good Indications Cough. Hx: CAD, PCI, COPD 2D Dimensions IVSd: 8.88 (7-11mm) LVOT Diam: 19.37 (18-24mm) LVDd: 46.17 mm PWd: 9.45 (7-11mm) Ascending Ao: 38.35 (22-36mm) LVDs: 31.05 (25-40mm) Left Atrium: 29.90 (27-40mm) Aortic Root: 33.72 mm Volumes Left Atrial Volume (Systole) Single Plane 4CH: 34.74 mL Single Plane 2CH: 35.85 mL LA ESV Index: 26.00 mL/m2 Aortic Valve AoV Peak Sina.: 1.30 m/s AO Peak Gr.: 6.79 mmHg LVOT Max P.90 mmHg LVOT Max V: 1.21 m/s ДМИТРИЙ Vmax: 2.75 cm2 [facility] [address] [place] [address] 2 D/M-MODE ECHOCARDIOGRAM Name: MAITE ALVAREZ GORDY Room #: 360-P [facility].#: [id number] Admission: 02/26/21 Attend Phys: Beverly Baig Discharge: Date of : 34 Report #: [id number] Mitral Valve E/A Ratio: 0.9 MV Decel. Time: 174.63 ms MV E Max Sina.: 0.95 m/s MV A Sina.: 1.06 m/s MV PHT: 50.64 ms IVRT: 83.04 ms Pulmonary Valve PV Peak Sina.: 0.77 m/s PV Peak Gr.: 2.40 mmHg Pulmonary Vein P Vein S: 0.74 m/s P Vein A: 0.35 m/s P Vein D: 0.43 m/s P Vein A Dur.: 100.3 msec P Vein S/D Ratio: 1.72 Tricuspid Valve TR Peak Sina.: 3.19 m/s RAP Estimate: 12.00 mmHg TR Peak Gr.: 40.83 mmHg PA Pressure: 52.00 mmHg Left Ventricle The left ventricle is normal size. Regional wall motion abnormalities are noted. There is normal left ventricular wall thickness. Left ventricular systolic function is normal. LVEF is 55%. Mild diastolic dysfunction is present (impaired relaxation pattern). Right Ventricle The right ventricle is normal size. The right ventricular systolic function is normal. Atria The left atrium size is normal. The right atrium size is normal. Aortic Valve The aortic valve is normal in structure. Trace aortic regurgitation. There is no aortic valvular stenosis. Mitral Valve The mitral valve is normal in structure. Mild to moderate mitral regurgitation. Tricuspid Valve The tricuspid valve is normal in structure. Mild to moderate [facility] [address] [place] [address] 2 D/M-MODE ECHOCARDIOGRAM Name: MAITE ALVAREZ GORDY Room #: 360-P [facility] .R.#: [id number] Admission: 02/26/21 Attend Phys: Beverly Baig Discharge: Date of : 34 Report #: [id number] tricuspid regurgitation. Estimated PAP is 50 mmHg. Pulmonic Valve The pulmonary valve is normal in structure. Mild pulmonic regurgitation. Great Vessels The aortic root is normal in size. The ascending aorta is borderline dilated (3.8cm). IVC is dilated and collapses <50% with inspiration. Pericardium There is no pericardial effusion. <Conclusion> The left ventricle is normal size. There is normal left ventricular wall thickness. Left ventricular systolic function is normal. Mild diastolic dysfunction is present (impaired relaxation pattern). The right ventricle is normal size. The left atrium size is normal. The aortic valve is normal in structure. Mild to moderate mitral regurgitation. Mild to moderate tricuspid regurgitation. Estimated PAP is 50 mmHg. <ELECTRONICALLY SIGNED> By: Trevor Rivers MD 03/02/21909 9 9 Trevor Rivers MD /INF
--- NOTE | 2021-03-02 16:28 | NUR ---
CM RECEIVED NOTICE FORM [facility] THAT INSURANCE HAS DENIED SKILLED REQUEST. DAUGHTER IN LAW OLGA NOTIFIED. PT DOWN TO 1L OXYGEN BUT HAD ROOM AIR SAT AT 83%. MAY NEED HOME O2. HH RECOMMENDED DUE TO SKILLED DENIAL. OLGA WILL BE COMING TO VISIT PT THIS EVENING IN WHICH THEY WILL DISCUSS IF PT IS AGREEABLE TO HH AND HOME OXYGEN. THEY ARE ALSO INTERESTED IN COST FOR RESPITE AT [facility]. KRISTI VACA CONTACTED AND SHE WILL CALL OLGA WITH COST.
[2021-03-02 16:52] VITALS: BP 167/69
--- NOTE | 2021-03-02 18:20 | NUR ---
PATIENT IS ALERT AND ORIENTED X4. SHE IS HARD OF HEARING. PATIENT IS AWARE OF HER LIMITATIONS. PATIENT IS ON 1L OF OXYGEN. EARLIER IN THE SHIFT PATIENT PUT ON ROOM AIR BUT HER OXYGEN SATURATION DESATED TO THE LOW 80'S. PATIENT WAS PLACED BACK ON 1L OF OXYGEN. PATIENT HAS BEEN CONTINENT OF BOTH BOWEL AND BLADDER THIS SHIFT. SHE GETS UP X1 ASSIST TO THE COMMODE WITH A GAITBELT AND WALKER. PATIENT HAS A SMALL BOWEL MOVEMENT THIS SHIFT. PATIENT HAS NO SKIN ISSUES. PAITENTS IV ON HER RIGHT AC CAME OUT WHEN SHE WAS BENDING HER ARM. IV WAS DISCONTINUED. PATIENT HAS A NEW IV STARTED ON HER RIGHT FOREARM THAT IS PATENT AND SALINE LOCKED. PATIENT WAS GIVEN COUGH MEDICINE X1 THIS SHIFT. PATIENT WILL CONTINUE TO BE MONITORED.
[2021-03-02 20:09] VITALS: BP 132/71
[2021-03-03 03:22] VITALS: BP 135/62
--- NOTE | 2021-03-03 04:56 | NUR ---
resting quietly, at this time. denies pain. calls approp for assist out of bed. no concerns voied. she does want to get home or moved onto snf. she was wondering if she will be done with the oxygen soon.
[2021-03-03 08:15] VITALS: BP 159/80
[2021-03-03 10:35] LABS: HEMATOCRIT 26.5 % (37.0-47.0); HEMOGLOBIN 8.5 gm/dL (12.0-15.0); MCH 32.2 pg (26.0-34.0); MCHC 32.1 g/dL (28.0-37.0); MCV 100.4 fL (80.0-100.0); RBC 2.64 mil/uL (4.20-5.00); RDW 15.2 % (10.5-14.5); WBC 11.3 thou/uL (4.0-11.0)
[2021-03-03 10:51] LABS: CALCIUM 8.4 mg/dL (8.5-10.1); CREATININE 1.7 mg/dL (0.6-1.0); POTASSIUM 3.2 mmol/L (3.5-5.1)
--- NOTE | 2021-03-03 12:37 | NUR ---
Call back rec'd from dtr in law Stu as well as cm visited with the pt at bedside. Insurance denial of snf stay discussed. Pt was supervision with PT this am. She is staying today for one unit of blood and adj of her heart medication d/t elev heart rate. She is not receptive to Hh or home o2. Those services were discussed at length with both the pt and her dtr in law. Pt reports her son is out of work right now and may be able to stay with her. She indicates she can not afford a respite stay at [facility] and she does not want private duty. Followup message left for Stu so pt/son/dtr in law can discuss how to manage their schedules and provide more supervision for pt or look at getting a security card for HH staff to be able to come in to the secured apt complex to see her. Support provided. Dc home in 1-2 days. HH and home o2 likely needed if pt is receptive.
--- NOTE | 2021-03-03 13:02 | EKG ---
[address] [address] ELECTROCARDIOGRAM REPORT Name: MAITE ALVAREZ GORDY Room #: 360-P ADM IN M.R.#: [id number] Admission: 02/26/21 Attend Phys: Bradley Pisano MD Discharge: Date of : 34 Report #: [id number] [facility] Test Date: 2021-03-03 Test Time: 09:51:16 Pat Name: MAITE ALVAREZ Department: Room: 360 P Gender: F Retreader: MIGUE : 1935 Requested By: Bradley Pisano Order Number: [id number] : Norman Doyle Measurements Intervals [place] Rate: 97 P: 64 AL: 128 QRS: -15 QRSD: 88 T: 69 QT: 344 QTc: 437 Interpretive Statements Sinus rhythm Inferior infarct, old Lateral leads are also involved Compared to ECG 02/26/2021 12:41:05 Myocardial infarct finding now present Sinus tachycardia no longer present Left-axis deviation no longer present Electronically Signed On 03-03-2021 13:01:57 LOW EMISSION AUTOMOBILE DESIGNER by Norman Doyle [email or web address] <ELECTRONICALLY SIGNED> By: Norman Doyle MD, [facility] 03/03/21 1301 0951 0951 Norman Doyle MD, [facility] /EPI
[2021-03-03 16:00] VITALS: BP 140/70
--- NOTE | 2021-03-03 18:38 | NUR ---
PT IS PROGRESSSING TOWARDS CARE, CONTINUE TO BE ON 1L OF OXYGEN. HR BETWEEN 90-105. UP TO BSC WITH ASSIT. FALL PRECAUTIONS IN PLACE. ANTICIPATING FOR D/C IN A FEW DAYS.
[2021-03-03 19:47] VITALS: BP 137/73
[2021-03-04 03:41] VITALS: BP 142/84
[2021-03-04 07:30] VITALS: BP 153/84
[2021-03-04 15:26] VITALS: BP 134/75
[2021-03-04 16:04] VITALS: BP 134/75
--- NOTE | 2021-03-04 16:06 | NUR ---
CASE DISCUSSED WITH CARE TEAM. DISCHARGED HELD TODAY R/T HEART RATE. CARDIOLOGY CONSULTED. POSSIBLE DC HOME SAT OR SUN IF CLEARED BY CARDIOLOGY. PT CONTINUES TO REFUSE HH REFERRAL. PT AND FAMILY AWARE THAT SKILLED IS NOT AN OPTION UNDER INSURANCE BENEFIT THEY HAVE DENIED REQUEST BECAUSE SUPERVISON WITH THERAPY. POSSIBLE [facility] DC DISCUSSED WITH DAUGHTER AND LAW OLGA WHO CONFIRMS THE FAMILY IS AVAILABLE ALL WKND AND WILL PROVIDE 24 HOUR SUPERVISION AT DISCHARGE. PORTABLE O2 TANK FROM [facility] LEFT WITH 3W NURSE TO BE GIVEN TO PT FOR THE RIDE HOME SHOULD SHE DC THIS WKND. PT AND FAMILY INSTUCTED TO CALL [facility] WHEN LEAVING THE HOSPITAL TO ARRANGE BRANDEN O2 SET UP.
--- NOTE | 2021-03-04 17:51 | NUR ---
assumed patient care at 0700. a/o x4/. st on monitor. up with standby. duy towards poc goals.
[2021-03-04 19:17] VITALS: BP 125/67
[2021-03-05 03:53] VITALS: BP 125/70
--- NOTE | 2021-03-05 05:58 | NUR ---
PT IS PROGRESSING TOWARD GOAL OF DISCHARGE. PT IS A&OX4 AND ABLE TO COMMUNICATE WANTS AND NEEDS TO STAFF. PT IS HARD OF HEARING. PT HAS BEEN TITRATED OFF O2 TO ROOM AIR, AND HAS MAINTAINED O2 SATS >94% THROUGHOUT THE NIGHT. SHE IS UP WITH SBA TO TRANSFER TO BSC. VSS THROUGHOUT THE SHIFT.
[2021-03-05 07:40] VITALS: BP 155/80
[2021-03-05 15:32] VITALS: BP 134/80
--- NOTE | 2021-03-05 16:18 | NUR ---
PATIENT ASSESMENTS COMPLETED. PATIENT HAS NO COMPLAINTS AT THIS TIME AND HAS BEEN COMFORTABLE TODAY, WATCHING TV, AND EATING MEALS.
[2021-03-05 19:13] VITALS: BP 125/73
[2021-03-06 04:08] VITALS: BP 128/61
--- NOTE | 2021-03-06 05:00 | NUR ---
PT IS A&OX4, PLEASANT AND COOPERATIVE, ABLE TO MAKE ALL WANTS AND NEEDS KNOWN TO STAFF. PT STABLE ON ROOM AIR WITH O2 SATS >92%. PT IS UP WITH SBA TO BSC. NO PLAN FOR DISCHARGE UNTIL SUNDAY AT EARLIEST, PER PT. SINUS RHYTHM ON OPERATIONS CHIEF. WILL CONTINUE TO OBSERVE FOR CHANGES.
[2021-03-06 07:37] VITALS: BP 132/72
[2021-03-06 16:13] VITALS: BP 111/63
--- NOTE | 2021-03-06 17:56 | NUR ---
PATIENT IS ALERT AND ORIENTED X4 THIS SHIFT. SHE IS ON ROOM AIR AND HER LUNGS SOUND CLEAR. PATIENTS OXYGEN SATURATION LEVELS HAVE BEEN IN THE LOW TO MID 90'S THIS SHIFT. PATIENT IS CC/ TELE AND HAS BEEN SINUS RHYTHM IN THE 90'S THIS SHIFT. PATIENT HAS BEEN CONTINENT OF BOTH BOWEL AND BLADDER THIS SHIFT. PAITNET IS UP WITH ONE ASSIST TO THE COMMODE. PATIENT HAS AN IV IN HER LEFT FOREARM THAT IS SALINE LOCKED AND PATENT. PATIENT WILL CONTINUE TO BE MONITORED.
[2021-03-06 19:06] VITALS: BP 120/66
[2021-03-07 03:23] VITALS: BP 122/74
--- NOTE | 2021-03-07 05:54 | NUR ---
patient aox4 makes needs known. patient is [place]. patient denied pain or discomfort.patient oxygen has been >90%. fall precaution in place. patient in bed asleep at this time breathing regular and unlaboured.
[2021-03-07 06:03] VITALS: BP 126/73
[2021-03-07 11:08] LABS: CALCIUM 8.4 mg/dL (8.5-10.1); CREATININE 2.2 mg/dL (0.6-1.0); POTASSIUM 3.9 mmol/L (3.5-5.1)
[2021-03-07] MEDS ORDERED: IPRAT-ALBUT 0.5-3 ML INH (11:23)
[2021-03-07] MEDS ORDERED: TORSEMIDE10 MG PO (11:23)
[2021-03-07] MEDS ORDERED: IRON325 PO (11:23)
[2021-03-07] MEDS ORDERED: KLOR-CON M2020 MEQ PO (11:23)
[2021-03-07] MEDS ORDERED: NEBULIZER MISCELL (11:42)
--- NOTE | 2021-03-07 13:42 | NUR ---
Assess for length of stay. Admit with pneumonia, fever, respiratoryfailure. Advanced age 85. Pt discharge was delayed over weekend due to tachcardia. Today, pt reports supposed to be going home. At fair amount of lunch, but stated hamburger was too tough. Did not want any alternative selections. ST has assessed and allowing regular consistency diet. Pt reports stable weights around 105 lb recently. Presents low nutrition risk
--- NOTE | 2021-03-07 14:41 | NUR ---
LEYLA reviewed chart and spoke with nursing and attending physician. Pt is progressing towards goals for discharge. Discharge home is anticipated for tomorrow. Awaiting lawn care worker to come see pt today. Pt will need a rest/exercise oximetry ordered prior to discharge. LEYLA spoke with pt's dtr-in-law, Stu, to provide update and discuss discharge plan. Pt's DIL states pt and family do not want HH at this time. Family will be able to provide 24 hour care for pt. Family will be able to providet transportation home when discharged. LEYLA updated [facility]. LEYLA is following to assist as needed with discharge planning.
[2021-03-07 16:12] VITALS: BP 126/74
--- NOTE | 2021-03-07 17:37 | NUR ---
PT IS PROGRESSING TOWARDS CARE. ANTICIPATING FOR D/C TOMORROW. CURRENTLY ON ROOM AIR, UP TO BSC, STAND BY. DAUGHTER VISITING, UPDATED ABOUT PT CARE.
[2021-03-07 18:49] VITALS: BP 108/57
--- NOTE | 2021-03-08 03:21 | NUR ---
WEARING O2 OVERNIGHT AT 2 LITERS. SHE IS AWARE OF THE PLAN FOR DISCHARGE TODAY TO HOME WITH FAMILY AND HOME HEALTH. CALLS APPROP. NO DISCHARGE CONCERNS VOICED.
[2021-03-08 03:56] VITALS: BP 114/69
[2021-03-08 06:43] LABS: CALCIUM 8.5 mg/dL (8.5-10.1); CREATININE 2.1 mg/dL (0.6-1.0); MAGNESIUM 1.5 mg/dL (1.8-2.4); POTASSIUM 3.9 mmol/L (3.5-5.1)
[2021-03-08 07:19] VITALS: BP 122/72
[2021-03-08 08:05] LABS: HEMATOCRIT 29.1 % (37.0-47.0); HEMOGLOBIN 9.7 gm/dL (12.0-15.0); MCH 32.9 pg (26.0-34.0); MCHC 33.4 g/dL (28.0-37.0); MCV 98.4 fL (80.0-100.0); PLATELET COUNT 291 thou/uL (150-400); RBC 2.96 mil/uL (4.20-5.00); WBC 13.5 thou/uL (4.0-11.0)
[2021-03-08] MEDS ORDERED: LEVOXYL50 MCG PO (11:34)
[2021-03-08] MEDS ORDERED: TESSALON PERLE100 MG PO (11:34)
[2021-03-08] MEDS ORDERED: CEFUROXIME500 MG PO (11:34)
[2021-03-08] MEDS ORDERED: PREDNISONE 10 M10 M1 PO (11:35)
[2021-03-08 11:44] LABS: ABSOLUTE NEUTROPHILS 8.9 thou/uL (1.4-8.2)
[2021-03-08 11:45] LABS: ANISOCYTOSIS 1+; PLATELET ESTIMATE NORMAL
[2021-03-08 13:27] VITALS: BP 134/75
--- NOTE | 2021-03-08 14:52 | NUR ---
DISCHARGE NOTE: CARE ASSUMED THIS AM. PT ALERT AND ORIENTED X4. DISCHARGE ORDERS IN FOR PT. IV AND TELE D/C. PT DTR IN LAW, UPDATED AND WILL BE ON HER WAY TO PICK PT UP. PT IS NO LONGER GOING HOME WITH OXYGEN POST EXERCISE SATURATION. WAITING FOR DAUGHTER IN LAW TO GET HERE, TO GO THROUGH PAPER WORK WITH THEM.
--- NOTE | 2021-03-08 15:08 | NUR ---
DISCHARGE NOTE: LEYLA reviewed chart and spoke with nursing and attending physician. Pt is medically stable to discharge home today. Rest/exercise oximetry completed this afternoon. Pt does not qualify for home O2. Pt will need a nebulizer. LEYLA updated [employer] liaisonDameon, to inform of pt needing a nebulizer and not home O2. Script faxed to [facility]. Confirmed info was received. LEYLA spoke with pt's dtr-in-law, Stu, to provide update and discuss discharge plan. Pt's DIL states that [facility] had planned to deliver home O2 at 1600. LEYLA notified [employer] liaison to cancel home O2 delivery, but pt still needs a nebulizer. Pt/family again declined HH services. Pt's DIL will provide transportation home. Contact info for [facility] placed in pt's discharge summary. LEYLA is following to assist as needed with discharge planning.
== END 2021-03-08 16:14 | disposition home or self-care (01) | DRG 871 ==
LOC: ER 12:12 → 3W 16:13 → EROBS 16:13 → 3W 16:26
PROVIDERS: Internal Medicine; Nurse Practitioner Adult Health; Nurse Practitioner Family; ADMIT Hospitalist; ATTEND Hospitalist
DX: A41.9 Sepsis, unspecified organism (principal); J18.9 Pneumonia, unspecified organism; J96.21 Acute and chronic respiratory failure with hypoxia; M48.50XA Collapsed vertebra, not elsewhere classified, site unspecified, initial encounter for fracture; N17.9 Acute kidney failure, unspecified; J44.0 Chronic obstructive pulmonary disease with (acute) lower respiratory infection; Z20.822 Contact with and (suspected) exposure to COVID-19; E03.9 Hypothyroidism, unspecified; M19.90 Unspecified osteoarthritis, unspecified site; E78.5 Hyperlipidemia, unspecified; D69.6 Thrombocytopenia, unspecified; I25.10 Atherosclerotic heart disease of native coronary artery without angina pectoris; E87.8 Other disorders of electrolyte and fluid balance, not elsewhere classified; D64.9 Anemia, unspecified; E78.00 Pure hypercholesterolemia, unspecified; M81.0 Age-related osteoporosis without current pathological fracture; F32.9 Major depressive disorder, single episode, unspecified; I73.9 Peripheral vascular disease, unspecified; Z96.641 Presence of right artificial hip joint; I12.9 Hypertensive chronic kidney disease with stage 1 through stage 4 chronic kidney disease, or unspecified chronic kidney disease; K52.9 Noninfective gastroenteritis and colitis, unspecified; I08.1 Rheumatic disorders of both mitral and tricuspid valves; N18.2 Chronic kidney disease, stage 2 (mild); E87.6 Hypokalemia; Z90.710 Acquired absence of both cervix and uterus; Z90.49 Acquired absence of other specified parts of digestive tract; Z88.8 Allergy status to other drugs, medicaments and biological substances; Z95.5 Presence of coronary angioplasty implant and graft; Z87.891 Personal history of nicotine dependence; I25.2 Old myocardial infarction; Z28.21 Immunization not carried out because of patient refusal
CPT/HCPCS: 10879